=== PATIENT | female | born 1945 | race Caucasian/White ===

== ENCOUNTER → 2020-02-17 | Outpatient (CLI) | payer MEDICARE ==
[2020-02-17 11:53] LABS: HGB 14.3 gm/dL (11.4-16.0); MCH 30.9 pg (25.0-35.0); MCHC 31.2 g/dL (31.0-37.0); MCV 99.3 fL (80.0-100.0); Mean Platelet Volume 8.1; Platelet Count 147 k/uL (150-450); RBC 4.63 m/uL (3.80-5.40); RDW 13.1 % (11.5-15.5)
[2020-02-17 12:07] LABS: INR 1.1 (<1.2); Prothrombin Time 10.8 sec (9.0-12.0)
[2020-02-17 20:05] LABS: Albumin 3.8 g/dL (3.80-4.90); Albumin/Globulin Ratio 1.58 (1.60-3.17); Bilirubin, Conjugated 0.4 mg/dL (0.20-0.40); Bilirubin,Unconjugated 0.7 mg/dL; Globulin 2.4 g/dL (1.6-3.3); Total Bilirubin 1.1 mg/dL (0.2-1.2); Total Protein 6.2 g/dL (6.2-8.2)
== END | disposition home or self-care (01) ==
LOC: LABWHC1 10:45
PROVIDERS: ATTEND Physician Assistant
DX: K75.4 Autoimmune hepatitis (principal)
CPT/HCPCS: 36415; 80076; 82105; 85027; 85610

== ENCOUNTER → 2020-07-14 | Outpatient (CLI) | payer MEDICARE | END | disposition home or self-care (01) | LOC: LABWHC1 12:17 | PROVIDERS: ATTEND Nurse Practitioner Gerontology | DX: R05 Cough (principal); R06.2 Wheezing ==

== ENCOUNTER → 2021-07-05 | Outpatient (CLI) | payer MEDICARE ==
--- NOTE | 2021-07-05 13:33 | US ---
EXAMINATION TYPE: US liver DATE OF EXAM: 07/05/2021 COMPARISON: Ultrasound 02/24/2015 CLINICAL HISTORY: 76-year-old female K74.60 Unspecified cirrhosis of liver. TECHNIQUE: Multiple sonographic images of the right upper quadrant are obtained. FINDINGS: EXAM MEASUREMENTS: Liver Length: 13.6 cm Gallbladder: Surgically absent CBD: 1.3 cm Right Kidney: 10.0x4.8x5.8 cm Pancreas: Prominent but nondilated main pancreatic duct measuring 2.3 mm. Most of the pancreas is vi sualized and shows no discrete abnormality. Liver: Mild diffuse parenchymal heterogeneity with nodular hepatic contour. No focal lesion is seen. Gallbladder: Surgically absent CBD: Dilated. Measured 1.2 cm on 02/24/2015, not significantly changed. Right Kidney: Inferior cyst measures 3.4x3.3x2.9cm . No hydronephrosis. IMPRESSION: 1. Cirrhotic morphology of the liver. Sonographic evidence for hepatoma. 2. Status post cholecystectomy. The bile duct is chronically dilated up to 1.3 cm (versus 1.2 cm in 2 015).
== END | disposition home or self-care (01) ==
LOC: RADUSWWP 08:56
PROVIDERS: ATTEND Internal Medicine Gastroenterology
DX: K74.60 Unspecified cirrhosis of liver (principal); K83.8 Other specified diseases of biliary tract; Z90.49 Acquired absence of other specified parts of digestive tract
CPT/HCPCS: 76705

== ENCOUNTER → 2021-08-07 | Outpatient (CLI) | payer MEDICARE ==
--- NOTE | 2021-08-08 13:12 | BD ---
EXAMINATION TYPE: Axial Bone Density DATE OF EXAM: 08/07/2021 COMPARISON: 03/06/2015 CLINICAL HISTORY: Height: 62.5 IN Weight: 173 LBS FRAX RISK QUESTIONS: Glucocorticoids (More than 3mos): PREDNISONE 7.5 MG PER DAY (Ex: prednisone, prednisolone, methylprednisolone, dexamethasone, and hydrocortisone). Secondary Osteoporosis: 5. Chronic liver disease: YES AUTO IMMUNE HEPATITIS RISK FACTORS HISTORY OF: Active: YES Diet low in dairy products/other sources of calcium: YES Postmenopausal woman: AGE 50 Lost more than 2 inches in height since high school: YES 4" MEDICATIONS: Prednisone or other steroids: YES 7.5 MG PER DAY How Lon YEARS Thyroid Medications: YES Which medication: Levothyroxine How Lon+ YEARS Additional Medications: PREDNISONE 7.5 MG PER DAY, LEVOTHYROXINE,MALOXICAN, OMEPRAZOLE, LOSARTAN EXAM MEASUREMENTS: Bone mineral densitometry was performed using the [employer] System. Bone mineral density as measured about the Lumbar spine is: ----- L1-L4(G/cm2): 1.191 T Score Values are as follows: ----- L2: -0.4 ----- L3: 0.2 ----- L4: 0.6 ----- L1-L4: 0.1 Bone mineral density has: Decreased -6.5% since study of: 03/06/2015 Bone mineral density about the R hip (g/cm2): 0.889 Bone mineral density about the L hip (g/cm2): 0.862 T Score values are as follows: -----R Neck: -1.1 -----L Neck: -1.3 -----R Total: -0.2 -----L Total: 0.0 Bone mineral density has: Decreased -7.0% since study of: 03/06/2015 IMPRESSION: Osteopenia (T Score between -2.5 and -1). There is slightly increased risk of fracture and the patient may be considered for treatment. Re-Screen 2-5 years. NOTE: T-SCORE=SD OF THE YOUNG ADULT MEAN.
== END | disposition home or self-care (01) ==
LOC: RADBDWWP 10:00
PROVIDERS: ATTEND Internal Medicine Geriatric Medicine
DX: M85.89 Other specified disorders of bone density and structure, multiple sites (principal); Z78.0 Asymptomatic menopausal state
CPT/HCPCS: 77080

== ENCOUNTER → 2021-08-21 | Outpatient (CLI) | payer MEDICARE ==
[2021-08-21 19:20] LABS: HCT 43.5 % (37.2-46.3); HGB 14.3 g/dL (12.0-15.0); MCH 32.6 pg (27.0-32.0); MCHC 32.9 g/dL (32.0-37.0); MCV 99.1 fL (80.0-97.0); Mean Platelet Volume 11.2 fL (9.5-12.2); Platelet Count 162 X 10*3/uL (140-440); RBC 4.39 X 10*6/uL (4.10-5.20); RDW 13.2 % (11.5-14.5); WBC 6.57 X 10*3/uL (4.50-10.00)
[2021-08-21 19:36] LABS: INR 1.06 (0.90-1.11); Prothrombin Time 11.6 sec (9.9-11.9)
[2021-08-21 21:43] LABS: Albumin 4.2 g/dL (3.8-4.9); Albumin/Globulin Ratio 1.47 (1.60-3.17); Bilirubin, Conjugated 0.22 mg/dL (0.20-0.40); Bilirubin,Unconjugated 0.67 mg/dL (0.20-1.00); Globulin 2.8 g/dL (1.6-3.3); Total Bilirubin 0.9 mg/dL (0.30-1.20)
== END | disposition home or self-care (01) ==
LOC: LABWHC1 11:48
PROVIDERS: ATTEND Internal Medicine Gastroenterology
DX: K75.4 Autoimmune hepatitis (principal)
CPT/HCPCS: 36415; 80076; 82105; 85027; 85610

== ENCOUNTER → 2022-01-21 | Outpatient (CLI) | payer MEDICARE ==
--- NOTE | 2022-01-21 09:36 | US ---
EXAMINATION TYPE: US liver DATE OF EXAM: 01/21/2022 COMPARISON: US CLINICAL HISTORY: K74.60 unspecified cirrhosis. 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 IMPRESSION: 1. Mild hepatic steatosis. 2. Right renal cysts.
[2022-01-21 14:51] LABS: HCT 43.4 % (37.2-46.3); HGB 13.9 g/dL (12.0-15.0); MCH 31.7 pg (27.0-32.0); MCV 99.1 fL (80.0-97.0); Mean Platelet Volume 11.2 fL (9.5-12.2); NRBC Per 100 WBC 0 /100 WBCS (0.0-0.0); Platelet Count 148 X 10*3/uL (140-440); RBC 4.38 X 10*6/uL (4.10-5.20); WBC 3.93 X 10*3/uL (4.50-10.00)
[2022-01-21 15:08] LABS: ALT 25 U/L (8-44); AST 36 U/L (13-35); Albumin 3.9 g/dL (3.8-4.9); Albumin/Globulin Ratio 1.57 (1.60-3.17); Alkaline Phosphatase 219 U/L (41-126); Bilirubin, Conjugated <0.20 mg/dL (0.20-0.40); Globulin 2.5 g/dL (1.6-3.3); Total Protein 6.4 g/dL (6.2-8.2)
== END | disposition home or self-care (01) ==
LOC: RADUSWWP 08:44
PROVIDERS: ATTEND Internal Medicine Gastroenterology
DX: K76.0 Fatty (change of) liver, not elsewhere classified (principal); N28.1 Cyst of kidney, acquired; K75.4 Autoimmune hepatitis
CPT/HCPCS: 36415; 76705; 80076; 82105; 85027

== ENCOUNTER → 2022-04-30 | Outpatient (CLI) | payer MEDICARE ==
[2022-04-30 14:18] LABS: Basophils # (A) 0.04 X 10*3/uL (0.00-0.10); Basophils % (A) 1.1 %; Eosinophils # (A) 0.43 X 10*3/uL (0.04-0.35); Eosinophils % (A) 11.3 %; HCT 42.8 % (37.2-46.3); HGB 13.8 g/dL (12.0-15.0); Immature Grans, Automated 0.3 %; Lymphocytes # (A) 0.31 X 10*3/uL (0.90-5.00); Lymphocytes % (A) 8.2 %; MCH 31.6 pg (27.0-32.0); MCHC 32.2 g/dL (32.0-37.0); MCV 97.9 fL (80.0-97.0); Mean Platelet Volume 10.8 fL (9.5-12.2); Monocytes # (A) 0.37 X 10*3/uL (0.20-1.00); Monocytes % (A) 9.8 %; NRBC Per 100 WBC 0 /100 WBCS (0.0-0.0); Neutrophils # (A) 2.63 X 10*3/uL (1.80-7.70); Neutrophils % (A) 69.3 %; Platelet Count 143 X 10*3/uL (140-440); RBC 4.37 X 10*6/uL (4.10-5.20); RDW 13.2 % (11.5-14.5); WBC 3.79 X 10*3/uL (4.50-10.00)
[2022-04-30 14:35] LABS: ALT 15 U/L (8-44); AST 31 U/L (13-35); African American GFR (CKD) 70.5 (60.0-200.0); Albumin 3.9 g/dL (3.8-4.9); Alkaline Phosphatase 196 U/L (41-126); BUN/Creat Ratio 13.44 Ratio (12.00-20.00); Bilirubin, Conjugated <0.20 mg/dL (0.20-0.40); Blood Urea Nitrogen 12.1 mg/dL (9.0-27.0); Carbon Dioxide 25.2 mmol/L (20.0-27.5); Chloride 105 mmol/L (96-109); Chol/HDL Ratio 4.02 Ratio; Globulin 2.6 g/dL (1.6-3.3); Glucose 88 mg/dL (70-110); LDL Cholesterol,Calculated 141.3 mg/dL (0.0-131.0); Non-African American GFR(CKD) 60.8 (60.0-200.0); Potassium 3.8 mmol/L (3.5-5.5); Sodium 141 mmol/L (135-145); Total Protein 6.5 g/dL (6.2-8.2); VLDL Calculation 19.36 mg/dL (5.00-40.00)
== END | disposition home or self-care (01) ==
LOC: LABWHC1 08:08
PROVIDERS: ATTEND Internal Medicine Geriatric Medicine
DX: E03.9 Hypothyroidism, unspecified (principal); K73.2 Chronic active hepatitis, not elsewhere classified; K75.4 Autoimmune hepatitis; R73.9 Hyperglycemia, unspecified
CPT/HCPCS: 36415; 80053; 80061; 82105; 82248; 83036; 84439; 84443; 85025

== ENCOUNTER → 2022-07-31 | Outpatient (CLI) | payer MEDICARE ==
[2022-07-31 15:58] LABS: HCT 40.1 % (37.2-46.3); HGB 13.5 g/dL (12.0-15.0); MCH 32.4 pg (27.0-32.0); MCHC 33.7 g/dL (32.0-37.0); MCV 96.2 fL (80.0-97.0); Mean Platelet Volume 10.6 fL (9.5-12.2); NRBC Per 100 WBC 0 /100 WBCS (0.0-0.0); Platelet Count 171 X 10*3/uL (140-440); RBC 4.17 X 10*6/uL (4.10-5.20); RDW 12.7 % (11.5-14.5); WBC 3.28 X 10*3/uL (4.50-10.00)
[2022-07-31 16:26] LABS: ALT 17 U/L (8-44); AST 31 U/L (13-35); Albumin 3.9 g/dL (3.8-4.9); Alkaline Phosphatase 246 U/L (41-126); Bilirubin, Conjugated <0.20 mg/dL (0.20-0.40); Globulin 2.4 g/dL (1.6-3.3); Total Protein 6.3 g/dL (6.2-8.2)
== END | disposition home or self-care (01) ==
LOC: LABWHC1 09:13
PROVIDERS: ATTEND Internal Medicine Gastroenterology
DX: K75.4 Autoimmune hepatitis (principal)
CPT/HCPCS: 36415; 80076; 82105; 85027

== ENCOUNTER → 2023-01-09 | Outpatient (CLI) | payer MEDICARE ==
--- NOTE | 2023-01-09 09:23 | US ---
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 Assess liver due to hepatitis, osmany cystectomy TECHNIQUE: Multiple sonographic images of the right upper quadrant are obtained. FINDINGS: EXAM MEASUREMENTS: Liver Length: 14.1 cm Gallbladder: Surgically absent CBD: 1.5 cm Right Kidney: 9.8 x 4.7 x 4.4 cm Pancreas: wnl Liver: slightly coarsened appearance. Some images suggest slight contour nodularity as well. No foc al lesion seen. Gallbladder: Surgically absent Evidence for sonographic Goff's sign: no CBD: dilated, no pain, increased in dilation from previous study where it measured 1.1 cm. Right Kidney: 3.6 x 3.6 x 3.4cm cyst with good posterior enhancement . No hydronephrosis. IMPRESSION: 1. Coarsened appearance to the liver and slight contour nodularity. Suspect underlying cirrhosis. 2. Status post cholecystectomy. This may account for the dilated bile duct at 1.5 cm, though slightly increased from 1.1 cm, previously. Correlate with alkaline phosphatase and bilirubin levels.
[2023-01-09 15:56] LABS: HCT 43.6 % (37.2-46.3); HGB 14.7 g/dL (12.0-15.0); MCH 33.2 pg (27.0-32.0); MCHC 33.7 g/dL (32.0-37.0); MCV 98.4 fL (80.0-97.0); Mean Platelet Volume 10.6 fL (9.5-12.2); NRBC Per 100 WBC 0 /100 WBCS (0.0-0.0); Platelet Count 175 X 10*3/uL (140-440); RBC 4.43 X 10*6/uL (4.10-5.20); RDW 13.2 % (11.5-14.5); WBC 10.73 X 10*3/uL (4.50-10.00)
[2023-01-09 16:23] LABS: ALT 17 U/L (8-44); AST 22 U/L (13-35); Albumin 4.2 g/dL (3.8-4.9); Albumin/Globulin Ratio 1.52 (1.60-3.17); Alkaline Phosphatase 221 U/L (41-126); Bilirubin, Conjugated <0.20 mg/dL (0.20-0.40); Globulin 2.8 g/dL (1.6-3.3)
== END | disposition home or self-care (01) ==
LOC: RADUSWWP 08:16
PROVIDERS: ATTEND Internal Medicine Gastroenterology
DX: K75.4 Autoimmune hepatitis (principal); K83.8 Other specified diseases of biliary tract; Z90.49 Acquired absence of other specified parts of digestive tract
CPT/HCPCS: 76705; 80076; 82105; 85027

== ENCOUNTER → 2023-08-07 | Outpatient (CLI) | payer MEDICARE ==
--- NOTE | 2023-08-07 12:59 | US ---
EXAMINATION TYPE: US venous doppler duplex LE RT DATE OF EXAM: 08/07/2023 12:46 PM COMPARISON: NONE CLINICAL INDICATION: Female, 78 years old with history of I80.9 PHLEBITIS; Swelling x couple weeks ri ght leg. No hx of DVT. Patient does not take blood thinners. SIDE PERFORMED: Right TECHNIQUE: The lower extremity deep venous system is examined utilizing real time linear array sonog juana with graded compression, doppler sonography and color-flow sonography. VESSELS IMAGED: Common Femoral Vein Deep Femoral Vein Greater Saphenous Vein * Femoral Vein Popliteal Vein Small Saphenous Vein * Proximal Calf Veins (* superficial vessels) Right Leg: No evidence of DVT. IMPRESSION: No ultrasound evidence for deep venous thrombosis of the right lower extremity.
== END | disposition home or self-care (01) ==
LOC: RADUSWWP 12:18
PROVIDERS: ATTEND Orthopaedic Surgery
DX: I80.9 Phlebitis and thrombophlebitis of unspecified site (principal); M17.12 Unilateral primary osteoarthritis, left knee; R22.41 Localized swelling, mass and lump, right lower limb

== ENCOUNTER → 2023-09-19 | Outpatient (CLI) | payer MEDICARE ==
--- NOTE | 2023-09-19 12:35 | CA ---
Stress Echo Report Kayli Archer Age: 78 Gender: F : 1945 Exam Date: 09/19/2023 09:29 Exam Location: [facility] Ht (in): 63 Wt (lb): 160 Ordering Physician: Steven Farmer MD Referring Physician: Steven Farmer MD Hematology Technologist: Johanne Dickson RDCS Technologist Procedure CPT: Indication: I20.9 Angina ICD-9 Codes: Rhythm: Patient History: NAEEM, PALP, CHOL, FAMILY HX, TOB, EXERTIONAL ASTHMA Cardiac Medications: ASAPRIN, CELABREX, PREDNAZONE, AMEPRAZOLE, LEVATHOROXIN, LOSARTAN, TRAMADOL AND ALBUTEROL INHALER (PRN) Medications in past 24 hours: Contrast: Stress Results Protocol: Jasson Total dose(mL): Exercise Duration (min:sec): 3:[address] Depression (mm): Angina Score: Manzanares Score: METS: 5.0 Resting HR: 110 Resting BP: 124 / 75 Peak HR: 142 Peak BP: 173 / 93 Max Predicted HR: 140 101 % Max Predicted HR Target HR: 119 Double Product: 96207 Stress Summary: BP Response: Reason for Termination: Maximal effort/unable to continue, Reached target heart rate or work-load Cardiac Symptoms: ASYMPTOMATIC ECG Analysis Resting ECG: Normal sinus rhythm, normal ECG heart rate 70 bpm Stress ECG: No significant ST-T wave changes diagnostic for ischemia at peak stress. Arrhythmia: There are no sustained arrhythmias or ectopic beats Echo Analysis Resting Echo: Normal global LV systolic function. No obvious regional wall motion abnormality. Peak Echo Analysis: Normal augmentation of global and segmental systolic function. No stress-induced regional wall motion abnormality MEASUREMENTS (Male/Female) Normal Values CONCLUSIONS Fair exercise tolerance for patient's age exercising for 3 minutes 52 seconds, achieving 5 METS Nonischemic ECG and echocardiographic response to exercise Overall normal treadmill stress echo Dr Bobby Gardner (Electronically Signed) Final Date: 19 September 2023 12:34
== END | disposition home or self-care (01) ==
LOC: RADNMMAIN 08:52
PROVIDERS: ATTEND Internal Medicine Geriatric Medicine
DX: I20.9 Angina pectoris, unspecified (principal); E78.00 Pure hypercholesterolemia, unspecified; J45.990 Exercise induced bronchospasm; R00.2 Palpitations
CPT/HCPCS: 93351

== ENCOUNTER → 2024-01-21 | Outpatient (CLI) | payer MEDICARE ==
[2024-01-21 15:46] LABS: HCT 44.7 % (37.2-46.3); HGB 14.3 g/dL (12.0-15.0); MCH 32.4 pg (27.0-32.0); MCV 101.4 FL (80.0-97.0); Mean Platelet Volume 12.4 FL (9.5-12.2); NRBC Per 100 WBC 0 X 10*3/uL (0.00-0.01); Platelet Count 127 X 10*3/uL (140-440); RBC 4.41 X 10*6/uL (4.10-5.20); RDW 13.2 % (11.5-14.5); WBC 5.64 X 10*3/uL (4.50-10.00)
[2024-01-21 16:04] LABS: ALT 47 U/L (8-44); AST 56 U/L (13-35); Albumin/Globulin Ratio 1.14 Ratio (1.60-3.17); Alkaline Phosphatase 257 U/L (41-126); Calcium 9.3 mg/dL (8.7-10.3); Carbon Dioxide 25.8 mmol/L (21.6-31.8); Chloride 105 mmol/L (96-109); Globulin 3.5 g/dL (1.6-3.3); Glucose 96 mg/dL (70-110); Potassium 4.4 mmol/L (3.5-5.5); Sodium 141 mmol/L (135-145); Total Bilirubin 0.9 mg/dL (0.3-1.2); Total Protein 7.5 g/dL (6.2-8.2)
--- NOTE | 2024-01-21 21:50 | US ---
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 FINDINGS: EXAM MEASUREMENTS: Liver Length: 12.9 cm Gallbladder Wall: Surgically absent CBD: 1.1 cm Right Kidney: 9.1 x 4.8 x 4.7 cm Pancreas: slightly heterogeneous. duct = 0.2cm body, within normal limits. Liver: slightly nodular Gallbladder: Surgically absent Evidence for sonographic Goff's sign: no CBD: wnl, post cholecystectomy Right Kidney: cystic area = 3.7 x 3.7 x 3.2cm IMPRESSION: 1. Simple right renal cyst.
== END | disposition home or self-care (01) ==
LOC: RADUSWWP 08:50
PROVIDERS: ATTEND Internal Medicine Gastroenterology
DX: N28.1 Cyst of kidney, acquired (principal); K75.4 Autoimmune hepatitis
CPT/HCPCS: 76705; 80053; 82105; 85027

== ENCOUNTER → 2024-07-19 | Outpatient (CLI) | payer MEDICARE ==
--- NOTE | 2024-07-19 09:31 | US ---
EXAMINATION TYPE: US liver DATE OF EXAM: 07/19/2024 COMPARISON: NONE CLINICAL INDICATION: Female, 79 years old with history of K75.4 AUTO IMMUNE LIVER; autoimmune TECHNIQUE: Grayscale and color Doppler imaging of the right upper quadrant was performed. FINDINGS: EXAM MEASUREMENTS: Liver Length: 14.0 cm Gallbladder Wall: Surgically absent CBD: 1.5 cm Right Kidney: 8.7x4.8x5.5 cm MANAGER CABLE NOTES: Pancreas: Tail obscured by overlying bowel gas Liver: macro nodularity, dilated bile ducts Gallbladder: Surgically absent Evidence for sonographic Goff's sign: No CBD: very enlarged Right Kidney: mid pole cyst 3.8x3.6x2.8cm exam limited by bowel and habitus IMPRESSION: Slightly coarsened echo pattern of the liver correlate for underlying hepatocellular disease. Mild in trahepatic biliary dilation and postcholecystectomy changes. CBD is dilated measuring 1.5 cm. Conside r follow-up MRCP as clinically warranted. [facility], , 07/19/2024 9:29 AM
[2024-07-19 15:01] LABS: HCT 40.5 % (37.2-46.3); HGB 13.3 g/dL (12.0-15.0); MCH 32.8 pg (27.0-32.0); MCHC 32.8 g/dL (32.0-37.0); MCV 99.8 FL (80.0-97.0); Mean Platelet Volume 12.2 FL (9.5-12.2); NRBC Per 100 WBC 0 X 10*3/uL (0.00-0.01); Platelet Count 121 X 10*3/uL (140-440); RBC 4.06 X 10*6/uL (4.10-5.20); RDW 13.8 % (11.5-14.5); WBC 5.15 X 10*3/uL (4.50-10.00)
[2024-07-19 15:46] LABS: ALT 34 U/L (8-44); AST 53 U/L (13-35); Albumin 3.8 g/dL (3.8-4.9); Albumin/Globulin Ratio 1.23 Ratio (1.60-3.17); Alkaline Phosphatase 244 U/L (41-126); Calcium 9.3 mg/dL (8.7-10.3); Carbon Dioxide 27.5 mmol/L (21.6-31.8); Chloride 106 mmol/L (96-109); Globulin 3.1 g/dL (1.6-3.3); Glucose 101 mg/dL (70-110); Potassium 4.5 mmol/L (3.5-5.5); Sodium 142 mmol/L (135-145); Total Bilirubin 0.9 mg/dL (0.3-1.2); Total Protein 6.9 g/dL (6.2-8.2)
== END | disposition home or self-care (01) ==
LOC: RADUSWWP 08:58
PROVIDERS: ATTEND Internal Medicine Gastroenterology
DX: K75.4 Autoimmune hepatitis
CPT/HCPCS: 76705; 80053; 82105; 85027

== ENCOUNTER → 2024-09-20 | Outpatient (CLI) | payer MEDICARE ==
--- NOTE | 2024-09-20 09:24 | MR ---
MR MRCP INDICATION: Patient age:Female; 79 years old; Reason for study: K83.8 disease of biliary tract; PHH. COMPARISON: Multiple liver ultrasounds with most recent 07/19/2024. TECHNIQUE: Multi planar, T2-weighted imaging with and without fat saturation and chemical shift imag ing was performed of the abdomen. Then, heavily T2 weighted imaging was utilized in order to study th e biliary system. Maximum intensity projection images were reconstructed from the original data of t he biliary tree. No Gadolinium given. FINDINGS: MRCP: The intrahepatic ducts demonstrates smooth mild dilatation. The common bile duct at the level of the pancreatic head measures 14 mm in size. The common hepatic duct measures 15 mm in size. No bi liary filling defects identified . There is smooth tapering to the ampulla. The pancreatic duct is no rmal. The gallbladder surgically absent. Few scattered pancreatic tiny T2 hyperintense lesions measu ring up to 4 mm. Abdomen: The spleen, and adrenal glands have a normal noncontrast appearance. Subtle surface nodulari ty. No focal lesion identified within the liver. No hepatic fatty infiltration. No hydronephrosis. Th in-walled T2 hyperintense right inferior pole renal 4.4 cm cyst. Additional smaller cysts within both kidneys. Bilateral ovarian T2 hyperintense cystic structures with the right measuring 3.2 cm and the left measuring up to 7.1 cm. Small hiatal hernia. Periampullary duodenal diverticulum. Levoscoliotic curvature of the lumbar spine with apex at L3. Multilevel T2 hyperintense probable vert ebral hemangiomas. IMPRESSION: 1. Mild intra and extrahepatic biliary ductal dilatation without evidence to suggest ductal strictur e, choledocholithiasis or obstructing mass. Findings likely related to postcholecystectomy physiology . 2. Few scattered pancreatic tiny T2 hyperintense cystic lesions. Probably represent side branch IPMN s. Consider follow-up MRI abdomen pancreatic mass protocol/MRCP in one year to assess for stability. 3. Bilateral indeterminate ovarian cystic lesions measuring up to 7.1 cm. Further evaluation with pe lvic ultrasound is recommended. 4. Subtle surface nodularity to the liver which can be seen with reported cirrhosis. Correlate clini jill. [facility], , 09/20/2024 9:22 AM
== END | disposition home or self-care (01) ==
LOC: RADMRIMAIN 07:30
PROVIDERS: ATTEND Internal Medicine Gastroenterology
DX: K83.8 Other specified diseases of biliary tract (principal); K57.10 Diverticulosis of small intestine without perforation or abscess without bleeding; K44.9 Diaphragmatic hernia without obstruction or gangrene
CPT/HCPCS: 74181

== ENCOUNTER → 2025-01-12 | Outpatient (CLI) | payer MEDICARE ==
[2025-01-12 14:57] LABS: Basophils # (A) 0.04 X 10*3/uL (0.00-0.10); Eosinophils # (A) 0.23 X 10*3/uL (0.04-0.35); HCT 43.6 % (37.2-46.3); HGB 14.5 g/dL (12.0-15.0); Lymphocytes # (A) 0.27 X 10*3/uL (0.90-5.00); MCH 33.1 pg (27.0-32.0); MCHC 33.3 g/dL (32.0-37.0); MCV 99.5 FL (80.0-97.0); Mean Platelet Volume 11.8 FL (9.5-12.2); Monocytes # (A) 0.45 X 10*3/uL (0.20-1.00); Monocytes % (A) 11.7 %; NRBC Per 100 WBC 0 X 10*3/uL (0.00-0.01); Neutrophils # (A) 2.86 X 10*3/uL (1.80-7.70); Platelet Count 161 X 10*3/uL (140-440); RBC 4.38 X 10*6/uL (4.10-5.20); RDW 13.3 % (11.5-14.5); WBC 3.86 X 10*3/uL (4.50-10.00)
[2025-01-12 15:51] LABS: ALT 32 U/L (8-44); AST 50 U/L (13-35); Albumin 3.8 g/dL (3.8-4.9); Albumin/Globulin Ratio 1.23 Ratio (1.60-3.17); Alkaline Phosphatase 288 U/L (41-126); Blood Urea Nitrogen 12.4 mg/dL (9.0-27.0); Calcium 9.2 mg/dL (8.7-10.3); Carbon Dioxide 27.2 mmol/L (21.6-31.8); Chloride 105 mmol/L (96-109); Chol/HDL Ratio 3.52 Ratio; Globulin 3.1 g/dL (1.6-3.3); Glucose 96 mg/dL (70-110); Potassium 4.4 mmol/L (3.5-5.5); Sodium 143 mmol/L (135-145); T4, Free (Free Thyroxine) 1.41 ng/dL (0.80-1.80); Total Bilirubin 0.8 mg/dL (0.3-1.2); Total Protein 6.9 g/dL (6.2-8.2)
== END | disposition home or self-care (01) ==
LOC: LABWHC1 09:33
PROVIDERS: ATTEND Internal Medicine Geriatric Medicine
DX: I10 Essential (primary) hypertension (principal); E78.2 Mixed hyperlipidemia; E03.9 Hypothyroidism, unspecified; K75.4 Autoimmune hepatitis; R73.9 Hyperglycemia, unspecified
CPT/HCPCS: 36415; 80053; 80061; 82105; 83036; 84439; 84443; 85025

== ENCOUNTER → 2025-01-17 | Outpatient (CLI) | payer MEDICARE ==
--- NOTE | 2025-01-17 09:44 | US ---
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 FINDINGS: EXAM MEASUREMENTS: Liver Length: 11.2 cm Gallbladder Wall: Surgically absent CBD: 1.4 cm Right Kidney: 10.3 x 6.2 x 4.6 cm AUTOMOTIVE SERVICE ADVISOR NOTES: Pancreas: tail obscured by bowel gas, duct measuring 1.5mm Liver: heterogeneous Gallbladder: Surgically absent CBD: appears dilated Right Kidney: cystic area inf pole measuring 4.3 x 4.6 x 3.9cm The visualized portions of the pancreas are unremarkable. The tail is obscured by overlying bowel gas . Liver is heterogenous without focal lesion. There is macro nodularity redemonstrated. Similar dilat ed common bile duct. Redemonstration of right renal inferior pole simple cyst. No hydronephrosis or s olid mass. No shadowing calculus. IMPRESSION: 1. Post cholecystectomy changes with stable extra hepatic biliary duct dilatation. Again possibly re lated to cholecystectomy physiology. 2. Similar macro nodularity to the liver which can be seen with cirrhosis. Correlate clinically. [facility], , 01/17/2025 9:41 AM
== END | disposition home or self-care (01) ==
LOC: RADUSWWP 09:07
PROVIDERS: ATTEND Internal Medicine Gastroenterology
DX: K83.8 Other specified diseases of biliary tract (principal); K76.9 Liver disease, unspecified; K75.4 Autoimmune hepatitis; Z90.49 Acquired absence of other specified parts of digestive tract
CPT/HCPCS: 76705

== ENCOUNTER → 2025-01-31 | Outpatient (CLI) | payer MEDICARE ==
--- NOTE | 2025-01-31 20:44 | US ---
EXAMINATION TYPE: US transvaginal DATE OF EXAM: 01/31/2025 COMPARISON: NONE CLINICAL INDICATION: Female, 79 years old with history of N83.209 UNSPECIFIED OVARIAN CYST, UNSPECIFI ED SIDE; TECHNIQUE: Transvaginal (TV) and Transabdominal (TA) . FINDINGS: Date of LMP: 35 years ago EXAM MEASUREMENTS: Uterus: 5.5 x 2.3 x 3.8 cm Endometrial Stripe: 0.5 cm Right Ovary: not seen Left Ovary: not seen 1. Uterus: anteverted, heterogeneous. Cervical nabothian cyst containing some internal debris measur ing up to 5 mm. 2. Endometrium: complex 3. Right Ovary: not seen due to overlying bowel gas 4. Left Ovary: not seen due to overlying bowel gas 5. Bilateral Adnexa: wnl 6. Posterior cul-de-sac: wnl IMPRESSION: 1. While the overall thickness of the endometrial stripe is normal at 5 mm for a postmenopausal femal e, there is prominent heterogeneity to the stripe and complex appearance. Some underlying endometrial hyperplasia is a consideration. Consider CLINICAL PRACTITIONER referral to assess the need for any potential endome trial biopsy versus surveillance follow-up. 2. Unable to visualize either ovary. [facility], , 01/31/2025 8:41 PM
== END | disposition home or self-care (01) ==
LOC: RADUSWWP 10:27
PROVIDERS: ATTEND Internal Medicine Geriatric Medicine
DX: N83.209 Unspecified ovarian cyst, unspecified side (principal); N85.8 Other specified noninflammatory disorders of uterus; Z78.0 Asymptomatic menopausal state
CPT/HCPCS: 76830; 76856